=== PATIENT | male | born 1995 | race Hispanic/Latino ===

== ENCOUNTER 2019-03-22 18:31 | Emergency (ER) | payer OTHER ==
[2019-03-22 19:17] LABS: RAPID GROUP A STREP NEGATIVE (NEGATIVE)
[2019-03-22] MEDS ORDERED: IBUPROFEN 600 MG TABLET ONE (19:33)
== END 2019-03-22 19:37 ==
LOC: EDH 18:31
DX: B34.9 Viral infection, unspecified (principal)
CPT/HCPCS: 87804; 87880

== ENCOUNTER 2019-03-30 21:31 | Emergency (ER) | payer OTHER ==
[2019-03-30 22:26] LABS: RAPID GROUP A STREP POSITIVE (NEGATIVE)
[2019-03-30] MEDS ORDERED: LIDOCAINE HCL-MPF 1% 2ML VIAL ONE (22:39)
[2019-03-30] MEDS ORDERED: CEFTRIAXONE SODIUM 1 GM ONE (22:39)
[2019-03-30] MEDS ORDERED: ACETAMINOPHEN EXTRA STRENGTH 500 MG TABLET ONE (22:40)
== END 2019-03-30 22:56 ==
LOC: EDH 21:31
DX: J02.0 Streptococcal pharyngitis (principal); E86.0 Dehydration
CPT/HCPCS: 87804 ×2; 87880; 96372; 99284; J0696; J3490